=== PATIENT | female | born 1955 | race Two or more races ===

== ENCOUNTER → 2016-11-23 | Outpatient (CLI) | payer OTHER ==
--- NOTE | 2016-11-23 12:04 | REPMRS ---
Patient History The patient states she had a clinical breast exam in 11/2016. Patient is postmenopausal and had first child at age 33. Family history of breast cancer in mother at age 50 and breast cancer in paternal aunt under age 50. Took hormonal contraceptives for 12 years. Digital Woman Screen Mammo: November 23, 2016 - Exam #: [id number] Bilateral CC and MLO view(s) were taken. Technologist: Lena Dubois, Technologist Prior study comparison: November 25, 2014, bilateral digital mammo screening bilat, performed at [facility]. October 10, 2013, bilateral bilat screen digital mammo, performed at [facility] ([facility]). FINDINGS: The breast tissue is extremely dense which could obscure a lesion on mammography. There is no evidence of cancer on this mammogram. No significant changes when compared with prior studies. ASSESSMENT: BI-RADS/ACR category 2 mammogram. Benign finding(s). Given the dense breast parenchyma and family history, recommend MRI of the breasts. Recommendation Routine screening mammogram of both breasts in 1 year (for women over age 40). This mammogram was interpreted with the aid of an FDA-approved computer-aided dectection system. Electronically Signed By: Ashu Galindo MD 11/23/16 [id number]
== END ==
LOC: M WHC 08:36
PROVIDERS: ATTEND Nurse Practitioner Women's Health
DX: Z12.31 Encounter for screening mammogram for malignant neoplasm of breast (principal); Z78.0 Asymptomatic menopausal state; Z80.3 Family history of malignant neoplasm of breast

== ENCOUNTER → 2016-11-23 | Outpatient (REF) | payer OTHER | LOC: M SFHCWAGY 09:15 | PROVIDERS: ATTEND Nurse Practitioner Women's Health | DX: Z12.4 Encounter for screening for malignant neoplasm of cervix (principal); B37.3 Candidiasis of vulva and vagina ==

== ENCOUNTER 2017-02-25 10:01 | Emergency (ER) | payer OTHER ==
[~2017-02-25] VITALS: Ht 172.7 cm; Wt 79.1 kg
[2017-02-25] MEDS ORDERED: MUCI600T37 PO (11:39)
[2017-02-25] MEDS ORDERED: TESS100C PO (11:39)
[2017-02-25 12:08] VITALS: BP 141/95
--- NOTE | 2017-02-25 13:23 | REP ---
CHEST, TWO VIEWS: COMPARISON: 02/15/2010. Mild biapical pleural and parenchymal scarring is again seen, unchanged. There is no acute infiltrate. Heart is normal in size. Mediastinal silhouette is unchanged. There are mild degenerative changes of the spine. IMPRESSION: No acute pulmonary disease. Signed by Ashu Galindo MD 02/25/2017 07:16 P
== END 2017-02-25 12:10 | disposition home or self-care (01) ==
LOC: M ED 10:01
DX: J20.8 Acute bronchitis due to other specified organisms (principal); F17.210 Nicotine dependence, cigarettes, uncomplicated

== ENCOUNTER 2017-07-25 07:55 | Day surgery (SDC) | payer OTHER ==
[2017-07-25] MEDS: NS 1,000 ML IV (08:15)
[2017-07-25] MEDS ORDERED: PROPOFOL 200 MG/20 ML VIAL As Ordered ×2 (08:49→08:59)
[2017-07-25] MEDS ORDERED: LIDOCAINE 2% MDV 20 ML VIAL As Ordered (08:49)
== END 2017-07-25 09:55 | disposition home or self-care (01) ==
LOC: M OPP 07:55
DX: Z12.11 Encounter for screening for malignant neoplasm of colon (principal); D12.5 Benign neoplasm of sigmoid colon; K64.8 Other hemorrhoids; E78.5 Hyperlipidemia, unspecified; D64.9 Anemia, unspecified; Z78.0 Asymptomatic menopausal state; J44.9 Chronic obstructive pulmonary disease, unspecified; F17.210 Nicotine dependence, cigarettes, uncomplicated; Z79.82 Long term (current) use of aspirin
CPT/HCPCS: 45385

== ENCOUNTER → 2018-02-19 | Outpatient (CLI) | payer OTHER | LOC: M WHC 08:47 | DX: Z12.31 Encounter for screening mammogram for malignant neoplasm of breast (principal) | CPT/HCPCS: 77067 ==

== ENCOUNTER → 2018-08-16 | Outpatient (CLI) | payer OTHER ==
[~2018-08-16] MED LIST: ASPI1TAB PO; CALCCHW8 PO; MUCI600T37 PO; PROHANCE 279.3MG/ML 15ML VIAL (A9576) As Ordered ONE; TESS100C PO; VITA10006 PO; VITATAB11 PO
--- NOTE | 2018-08-16 17:47 | REP ---
MRI BREAST WITH AND WITHOUT CONTRAST: HISTORY: Dense breasts as well as family history of breast cancer. [facility] lifetime risk of breast cancer is 21.4%. Multiple sequences were obtained prior to and following the intravenous administration of 12 mL ProHance. Images are reviewed on the TAKO software with CAD imaging, color overlay, subtraction images and MIP reconstruction images. Breast parenchyma is dense bilaterally in a fairly symmetrical pattern. No significant cystic change is seen bilaterally. No axillary adenopathy is seen with a few nonenlarged lymph nodes seen in the axillary regions bilaterally. No suspicious enhancing mass is seen. No morphologic abnormality is seen. There is mild background parenchymal enhancement. IMPRESSION: ACR 1 negative bilateral breast MRI. No suspicious mass or morphologic abnormality. Routine yearly screening breast MRI recommended. Electronically Signed by Ashu Galindo MD 08/21/2018 09:16 A
== END ==
LOC: M RAD 09:22
PROVIDERS: ATTEND Nurse Practitioner Women's Health
DX: R92.2 Inconclusive mammogram (principal); Z80.3 Family history of malignant neoplasm of breast
CPT/HCPCS: A9576; C8908

== ENCOUNTER → 2019-02-20 | Outpatient (CLI) | payer OTHER ==
[~2019-02-20] MED LIST changes: -ASPI1TAB PO; +ASPI81TA26 PO; -PROHANCE 279.3MG/ML 15ML VIAL (A9576) As Ordered ONE
--- NOTE | 2019-02-20 11:32 | REPMRS ---
Patient History The patient states she had a clinical breast exam in 02/2019. Family history of breast cancer at age 50 in mother, breast cancer under age 50 in paternal aunt. Took hormonal contraceptives for 12 years. 3D TOMOSYNTHESIS WAS PERFORMED. Digital Woman Screen Mammo: February 20, 2019 - Exam #: [id number] Bilateral CC and MLO view(s) were taken. Technologist: Noa Herron, Technologist Prior study comparison: February 19, 2018, bilateral digital woman screen mammo performed at [facility]. November 23, 2016, digital woman screen mammo performed at [facility]. FINDINGS: The breast tissue is extremely dense which could obscure a lesion on mammography. There has been no change in the appearance of the mammogram from the prior studies. There is a moderate amount of residual fibroglandular tissue which is fairly symmetric. There is no interval development of dominant mass, areas of architectural distortion, or clustered microcalcification typical of malignancy. Assessment: BI-RADS/ACR category 1 mammogram. Negative Mammogram. Recommendation Routine screening mammogram in 1 year (for women over age 40). This mammogram was interpreted with the aid of an FDA-approved computer-aided dectection system. THE LIFETIME RISK OF BREAST CANCER IS 20.8%, THEREFORE SUPPLEMENTAL SCREENING MRI OF THE BREASTS IS RECOMMENDED IN 6 MONTHS. Electronically Signed By: Ashu Galindo MD 02/20/19 [id number]
== END ==
LOC: M WHC 09:09
PROVIDERS: ATTEND Nurse Practitioner Women's Health
DX: Z12.31 Encounter for screening mammogram for malignant neoplasm of breast (principal); Z80.3 Family history of malignant neoplasm of breast; R92.2 Inconclusive mammogram

== ENCOUNTER → 2019-08-14 | Outpatient (CLI) | payer OTHER ==
[~2019-08-14] MED LIST changes: +PROHANCE 279.3MG/ML 15ML VIAL (A9576) As Ordered ONE
--- NOTE | 2019-08-14 17:29 | REP ---
Bilateral breast MRI study without and with IV gadolinium: History: Positive family history breast carcinoma. High-risk screening study. Comparison mammography February 20, 2019. Technique: Three Jayashree MRI imaging was performed with a dedicated breast coil. Axial, coronal, and sagittal T1 and T2-weighted scans were obtained with and without fat saturation in the usual fashion. The study includes dynamically acquired post gadolinium enhanced imaging subtraction imaging. Maximal intensity projection and multiplanar re-formation imaging is included as well. The study was interpreted with the aid of Repairogen, an FDA approved computer-aided detection (CAD) software program, on a dedicated breast MRI work station. The gadolinium enhancement dose is 13 mL of intravenous ProHance. Findings: There is a marked pattern of fibroglandular tissue bilaterally and symmetrically, corresponding to the hyperdense mammographic pattern. There is a mild pattern background parenchymal enhancement on postcontrast images. There is no evidence of axillary lymphadenopathy or significant breast cystic change. No suspicious morphologic abnormality is seen on pre or postcontrast high-resolution T1 and T2-weighted scans in either breast. Dynamically acquired sequential post contrast images show no suspicious focus of enhancement and/or washout in either breast to suggest malignancy. Subtraction images are unremarkable. Impression: BIRADS category 1 negative findings. Patient's whose estimated lifetime breast cancer risk assessment is greater than 20% merit annual screening breast MRI scanning in addition to annual screening mammography. Electronically Signed by hCarli Machado MD 08/14/2019 06:02 P
== END ==
LOC: M RAD 14:45
PROVIDERS: ATTEND Nurse Practitioner Women's Health
DX: R92.2 Inconclusive mammogram (principal); Z80.3 Family history of malignant neoplasm of breast
CPT/HCPCS: A9576; C8908

== ENCOUNTER → 2020-02-23 | Outpatient (CLI) | payer OTHER ==
[~2020-02-23] MED LIST changes: -PROHANCE 279.3MG/ML 15ML VIAL (A9576) As Ordered ONE
--- NOTE | 2020-02-23 10:10 | REPMRS ---
Patient History The patient states she had a clinical breast exam in 2019. Family history of breast cancer at age 50 in mother, breast cancer under age 50 in paternal aunt. Took hormonal contraceptives for 12 years. Digital Woman Screen Mammo: February 23, 2020 - Exam #: [id number] Bilateral CC and MLO view(s) were taken. Technologist: Sandra Gerber, Technologist Prior study comparison: February 20, 2019, bilateral digital woman screen mammo performed at [facility]. February 19, 2018, bilateral digital woman screen mammo performed at [facility]. November 23, 2016, digital woman screen mammo performed at [facility]. FINDINGS: The breast tissue is heterogeneously dense. This may lower the sensitivity of mammography. The Volpara volumetric breast density category is: C. There is a moderate amount of heterogeneously dense fibroglandular tissue which is fairly symmetric. There is no interval development of dominant mass, architectural distortion, or grouped microcalcification typical of malignancy. There has been no change in the appearance of the mammogram from the prior studies. 3-D tomosynthesis shows no additional findings. Assessment: BI-RADS/ACR category 1 mammogram. Negative Mammogram. Recommendation Breast MRI of both breasts in 6 months. Routine screening mammogram of both breasts in 1 year (for women over age 40). This patient's Lifetime Breast Cancer RIsk is estimated at 20.1 %. Annual screening Breast MRI scanniing is recommended for patient's whose lifetime risk assessment is over 20%. This mammogram was interpreted with the aid of an FDA-approved computer-aided dectection system. Electronically Signed By: Sven Machado MD 02/23/20 [id number]
== END ==
LOC: M WHC 08:43
PROVIDERS: ATTEND Nurse Practitioner Women's Health
DX: Z12.31 Encounter for screening mammogram for malignant neoplasm of breast (principal); Z80.3 Family history of malignant neoplasm of breast; Z92.0 Personal history of contraception

== ENCOUNTER → 2020-02-23 | Outpatient (REF) | payer OTHER | LOC: M SFHCWAGY 13:02 | PROVIDERS: ATTEND Nurse Practitioner Women's Health | DX: Z12.4 Encounter for screening for malignant neoplasm of cervix (principal); N76.0 Acute vaginitis ==

== ENCOUNTER → 2020-09-08 | Outpatient (CLI) | payer OTHER ==
[~2020-09-08] MED LIST changes: +PROHANCE 279.3MG/ML 15ML VIAL As Ordered ONE
--- NOTE | 2020-09-08 11:51 | REP ---
INDICATION: DENSE BREAST TISSUE FAM H/O BREAST CA. COMPARISON: Mammogram 02/23/2020, MRI 08/14/2019. TECHNIQUE: Three Jayashree MRI imaging was performed with a dedicated breast coil. Axial, coronal, and sagittal T1 and T2 weighted scans were obtained with and without fat saturation in the usual fashion. The study includes dynamically acquired post gadolinium-enhanced imaging with image subtraction. Maximum intensity projection and multi planar reformation imaging is included as well. This study is interpreted with the aid of Siperian, an FDA approved computer aided detection (CAD) software program, on a dedicated breast MRI workstation. The gadolinium enhancement dose is 13 mL of intravenous ProHance. FINDINGS: There is an extreme pattern of parenchymal tissue bilaterally symmetrically. No axillary adenopathy is seen. No cystic changes seen in either breast. There is mild background parenchymal enhancement bilaterally. No suspicious enhancing mass or morphologic abnormality. IMPRESSION: BI-RADS category 1, negative bilateral breast MRI. No suspicious enhancing mass or morphologic abnormality. Yearly supplemental screening MRI of the breasts is recommended for patients with an elevated lifetime risk of breast cancer of 20% or greater, in addition to annual screening mammography, staggered every 6 months. <Electronically signed by Ashu Galindo > 09/08/20 1144
== END ==
LOC: M RAD 07:41
PROVIDERS: ATTEND Nurse Practitioner Women's Health
DX: Z80.3 Family history of malignant neoplasm of breast (principal); R92.2 Inconclusive mammogram; Z91.89 Other specified personal risk factors, not elsewhere classified
CPT/HCPCS: A9576; C8908

== ENCOUNTER 2021-01-09 13:44 | Inpatient (IN) | payer OTHER ==
[~2021-01-09] VITALS: Ht 172.7 cm; Wt 62.2 kg
[~2021-01-09 13:44] MED LIST changes: -PROHANCE 279.3MG/ML 15ML VIAL As Ordered ONE
[2021-01-09] MEDS ORDERED: ATOR1TAB19 PO (13:57)
[2021-01-09 15:05] LABS: BASO % 0.3 % (0.0-1.0); EOS # 0.1 10^3/uL (0.0-0.5); EOS % 0.5 % (0.0-3.0); HEMATOCRIT 41.9 % (36.0-47.0); HEMOGLOBIN 14.2 g/dl (12.0-15.5); LYMPH # 1.5 10^3/uL (1.5-5.0); LYMPH % 11.8 % (24.0-44.0); MEAN CORPUSCULAR HEMOGLOBIN 34.8 pg (27.0-33.0); MEAN CORPUSCULAR HGB CONC 33.9 g/dl (32.0-36.5); MEAN CORPUSCULAR VOLUME 102.7 fl (80.0-96.0); MONO # 1.3 10^3/uL (0.0-0.8); MONO % 10.1 % (2.0-8.0); NEUTROPHILS # 9.8 10^3/uL (1.5-8.5); PLATELET COUNT, AUTOMATED 255 10^3/uL (150-450); RED BLOOD COUNT 4.08 10^6/uL (4.00-5.40); WHITE BLOOD COUNT 12.8 10^3/uL (4.0-10.0)
--- NOTE | 2021-01-09 15:18 | REP ---
INDICATION: DYSPNEA/COUGH. COMPARISON: PA and lateral chest dated 01/17/2005 and PA and lateral chest dated 02/25/2017. TECHNIQUE: Portable AP chest with the patient upright. FINDINGS: The lung foster are clear. Cardiac size is normal. However, the cardiac apex has an unusual bulbous appearance as an interval change. This could be artifact from portable positioning, small infiltrate obscuring the cardiac apex or possibly a myocardial aneurysm. There are no pleural effusions. The gilson, mediastinum, and skeletal structures are unremarkable. IMPRESSION: Bulbous appearing cardiac apex, nonspecific, infiltrate obscuring the apex versus artifact from portable positioning versus myocardial aneurysm. <Electronically signed by Ashu Junior > 01/09/21 [id number]
[2021-01-09] MEDS ORDERED: ALBUTEROL SULFATE 2.5 MG/0.5 ML INH NEB SOLN INH ONE (15:20)
[2021-01-09] MEDS ORDERED: methylPREDNISolone 125MG 2ML VIAL IV ONE (15:20)
[2021-01-09] MEDS ORDERED: IPRATROPIUM 0.5MG/ALBUTEROL 2.5MG INH SOL UD 3ML (DUONEB) NEB ONE (15:20)
[2021-01-09] MEDS ORDERED: NS 1,000 ML IV ONE (15:25)
[2021-01-09] MEDS ORDERED: ACETAMINOPHEN 325 MG TAB PO ONE (15:25)
[2021-01-09 15:34] LABS: RSV AMPLIFICATION NEGATIVE (NEGATIVE)
[2021-01-09 15:34] LABS: ALBUMIN 3.4 GM/DL (3.2-5.2); ALT/SGPT 17 U/L (12-78); BILIRUBIN,DIRECT 0.2 MG/DL (0.0-0.2); BILIRUBIN,TOTAL 0.9 MG/DL (0.2-1.0); BLOOD UREA NITROGEN 9 MG/DL (7-18); CALCIUM LEVEL 8.6 MG/DL (8.8-10.2); CARBON DIOXIDE LEVEL 26 MEQ/L (21-32); CHLORIDE LEVEL 102 MEQ/L (98-107); CREATININE FOR GFR 0.49 MG/DL (0.55-1.30); GLOMERULAR FILTRATION RATE > 60.0 (>45); GLUCOSE, FASTING 140 MG/DL (70-100); SODIUM LEVEL 134 MEQ/L (136-145); TOTAL PROTEIN 7.3 GM/DL (6.4-8.2)
[2021-01-09] MEDS ORDERED: ISOVUE-370 76% 100ML VIAL As Ordered ONE (15:44)
--- NOTE | 2021-01-09 16:22 | REP ---
INDICATION: ro pe, ro pneumonia. COMPARISON: A PA and lateral chest dated 01/17/2005. TECHNIQUE: Chest CT with IV contrast, pulmonary artery CT angiography protocol. FINDINGS: There are no emboli in the pulmonary trunk or central pulmonary arteries. There are no emboli in the pulmonary artery lobar segment branches on the right or the left. There is a focal infiltrate anteriorly in the lingular segment of the left upper lobe. There is a focal infiltrate posteriorly and inferiorly in the lingular segment of the left upper lobe. There is a curvilinear density in the right middle lobe which could represent atelectasis or infiltrate. There are no pleural effusions. There are no lung masses or nodules. There are multiple bulla in the lung apices bilaterally. There is diffuse interstitial coarsening. There are bulla in the left parahilar area and in the medial basilar segment of the right lower lobe. The thoracic aorta is unremarkable. Cardiac size is normal. There is no pericardial effusion. The upper abdominal contents are unremarkable except for a punctate nonobstructive left renal upper pole calculus. IMPRESSION: There are no pulmonary emboli. There are infiltrates in the right middle lobe and lingular segment of the left upper lobe as described. No pleural effusions. Bulla and diffuse bilateral interstitial coarsening compatible with bullous emphysema and chronic lung disease. <Electronically signed by Ashu Junior > 01/09/21 [id number]
--- NOTE | 2021-01-09 17:47 | HPEPDOC ---
[facility] Medical History & Physical Date of Admission Jan 09, 2021 Date of Service: Jan 09, 2021 History and Physical CHIEF COMPLAINT: shortness of breath HISTORY OF PRESENT ILLNESS: 65-year-old female presents for 2 week history of worsening shortness of breath. She states over the last 2 days her shortness of breath significantly worsened. She also notes subjective fevers and chills at home. She has received both vaccinations for COVID several months ago. She denies chest pain, abdominal pain, nausea, vomiting, diarrhea, headaches, changes in vision, sick contacts or recent travel. PAST MEDICAL HISTORY: #COPD SOCIAL HISTORY: smoker - 1/2 ppd x 45 years denies alcohol or illicit drug use FAMILY HISTORY: Father: , cancer, unknown type. Mother: , breast cancer Brother: wegeners, lung cancer ALLERGIES: Please see below. REVIEW OF SYSTEMS: Negative except as per HPI HOME MEDICATIONS: Please see below. PHYSICAL EXAMINATION: General: NAD, lying comfortably in bed HEENT: NC/AT, EOMI Lungs: CTA B/L Heart: +S1S2, RRR Abd: soft, NT, +BS Ext: no edema Skin: no rashes MSK: full ROM in large joints Neuro: no gross focal deficits Psych: AAOx3 LABORATORY DATA: See below. MICROBIOLOGY: Please see below. A/P: 55-year-old female for 2 week history of worsening shortness of breath, fevers, chills, cough, admitted for right middle lobe pneumonia. #PNA - cef/doxy day #1 - IS, acapella - sputum Cx/gram stain - bcx pending #COPD - supplemental o2 as needed - respiratory treatments as needed #nicotine abuse - nicotine replacement therapy #DVT prophylaxis - heparin SC CODE status - extensive discussion at bedside - full code Vital Signs Vital Signs Date Time Temp Pulse Resp B/P (MAP) Pulse Ox O2 Delivery O2 Flow Rate FiO2 01/09/21 13:44 101.1 130 20 144/69 (94) 93 Room Air Laboratory Data Labs 24H Laboratory Tests 2 01/09/21 14:40: Coronavirus (COVID-19)(PCR) NEGATIVE, Influenza Type A (RT-PCR) NEGATIVE, Influenza Type B (RT-PCR) NEGATIVE, Respiratory Syncytial Virus (PCR) NEGATIVE 01/09/21 14:51: Immature Granulocyte % (Auto) 0.3, Neutrophils (%) (Auto) 77.0H, Lymphocytes (%) (Auto) 11.8L, Monocytes (%) (Auto) 10.1H, Eosinophils (%) (Auto) 0.5, Basophils (%) (Auto) 0.3, Neutrophils # (Auto) 9.8H, Lymphocytes # (Auto) 1.5, Monocytes # (Auto) 1.3H, Eosinophils # (Auto) 0.1, Basophils # (Auto) 0.0, Nucleated Red Blood Cells % (auto) 0.0, Anion Gap 6L, Glomerular Filtration Rate > 60.0, Calcium Level 8.6L, Total Bilirubin 0.9, Direct Bilirubin 0.2, Aspartate Amino Transf (AST/SGOT) 15, Alanine Aminotransferase (ALT/SGPT) 17, Alkaline Phosphatase 63, Total Protein 7.3, Albumin 3.4, Albumin/Globulin Ratio 0.9L 01/09/21 15:15: POC Troponin I (Misc) 0.01 01/09/21 15:39: POC pH (Misc Panel) 7.424, POC Base Excess (Misc Panel) 0.0, POC Saturated Percent O2 (Misc) 91L, POC pO2 (Misc Panel) 60.0L, POC pCO2 (Misc Panel) 37.2, POC HCO3 (Misc Panel) 24.4, POC Total CO2 (Misc Panel) 25.0 01/09/21 15:42: Lactic Acid Level 0.6 CBC/BMP Laboratory Tests 01/09/21 14:51 Microbiology Microbiology 01/09/21 Blood Culture, Received Pending 01/09/21 Blood Culture, Received Pending Home Medications Scheduled (Calcium 1200 7252-7380 mg-Unit) 1 Chw Chw, 1 CHW PO DAILY Ascorbic Acid (Vitamin C) 1,000 Mg Tab, 1,000 MG PO DAILY B1/B2/B3/B5/B6 (Vitamin B Complex) 1 Tab Tab, 1 TAB PO DAILY Miscellaneous Medications Atorvastatin Calcium (Atorvastatin Calcium) 10 Mg Tablet Allergies Coded Allergies: No Known Allergies (Unverified , 02/25/17) A-FIB/CHADSVASC A-FIB History Current/History of A-Fib/PAF?: No JOSE ANTONIO BRYANT MD Jan 09, 2021 17:46
[2021-01-09] MEDS ORDERED: VALT500T PO (18:27)
[2021-01-09] MEDS ORDERED: VITA100062 PO (18:27)
[2021-01-09] MEDS ORDERED: CALC600T61 PO (18:27)
[2021-01-09] MEDS ORDERED: VITATAB73 PO (18:27)
[2021-01-09] MEDS ORDERED: HOME MED LIST COMPLETE! XX SCH (18:30)
[2021-01-09] MEDS ORDERED: cefTRIAXone SOD 1 GM in D5W MINI-BAG PLUS 50 ML IV SCH (20:00)
--- NOTE | 2021-01-09 20:31 | ECGEPIP ---
[facility] - ED Test Date: 2021-01-09 Pat Name: JENNIFER KYLE Department: Room: - Gender: Female Regulatory Compliance Engineer: : [id number] Requested By: LESA Butler Order Number: [id number] Reading MD: Rose Mary Cespedes Measurements Intervals [place] Rate: 103 P: 76 ID: [id number] QRS: 92 QRSD: 72 T: 67 QT: 326 QTc: 427 Interpretive Statements Sinus tachycardia with premature supraventricular complexes Rightward axis Septal infarct , age undetermined No prior Electronically Signed on 01-09-2021 20:31:19 EDT by Rose Mary Cespedes
[2021-01-09 22:05] VITALS: BP 122/62
[2021-01-09] MEDS: BENZONATATE 100 MG CAP PO SCH (23:03)
[2021-01-09] MEDS: HEPARIN SOD (PORCINE) 5000UNITS/ML 1ML VIAL/SYRINGE SC SCH (23:03)
[2021-01-09] MEDS: DOXYCYCLINE HYCLATE 100 MG in D5W MINI-BAG PLUS 100 ML IV SCH (23:04)
[2021-01-09] MEDS: NICOTINE 14 MG/24 HR TRANSDERMAL TD SCH (23:04)
[2021-01-10 06:00] VITALS: BP 110/69
[2021-01-10 06:21] LABS: HEMATOCRIT 41.4 % (36.0-47.0); HEMOGLOBIN 13.8 g/dl (12.0-15.5); MEAN CORPUSCULAR HEMOGLOBIN 34.8 pg (27.0-33.0); MEAN CORPUSCULAR HGB CONC 33.3 g/dl (32.0-36.5); MEAN CORPUSCULAR VOLUME 104.3 fl (80.0-96.0); PLATELET COUNT, AUTOMATED 278 10^3/uL (150-450); RED BLOOD COUNT 3.97 10^6/uL (4.00-5.40); WHITE BLOOD COUNT 11.7 10^3/uL (4.0-10.0)
[2021-01-10 07:06] LABS: ALBUMIN 3.2 GM/DL (3.2-5.2); ALT/SGPT 16 U/L (12-78); BILIRUBIN,TOTAL 0.4 MG/DL (0.2-1.0); BLOOD UREA NITROGEN 8 MG/DL (7-18); CALCIUM LEVEL 8.6 MG/DL (8.8-10.2); CARBON DIOXIDE LEVEL 28 MEQ/L (21-32); CHLORIDE LEVEL 105 MEQ/L (98-107); CREATININE FOR GFR 0.49 MG/DL (0.55-1.30); GLOMERULAR FILTRATION RATE > 60.0 (>45); GLUCOSE, FASTING 198 MG/DL (70-100); SODIUM LEVEL 137 MEQ/L (136-145); TOTAL PROTEIN 7.4 GM/DL (6.4-8.2)
[2021-01-10] MEDS: DOXYCYCLINE HYCLATE 100 MG in D5W MINI-BAG PLUS 100 ML IV SCH (08:36)
[2021-01-10] MEDS: BENZONATATE 100 MG CAP PO SCH (08:36)
[2021-01-10] MEDS: HEPARIN SOD (PORCINE) 5000UNITS/ML 1ML VIAL/SYRINGE SC SCH (08:37)
[2021-01-10] MEDS: NICOTINE 14 MG/24 HR TRANSDERMAL TD SCH (08:37)
[2021-01-10] MEDS ORDERED: DOXY-350 PO (10:03)
[2021-01-10] MEDS ORDERED: PRED10TA2 PO (10:03)
[2021-01-10] MEDS ORDERED: NICO14PA TD (10:03)
[2021-01-10] MEDS ORDERED: CEFD1CAP8 PO (10:03)
[2021-01-10] MEDS ORDERED: predniSONE 20 MG TAB PO ONE (10:05)
[2021-01-12 14:09] LABS: BODY FLUID CULTURE Not indicated. (.); LEGIONELLA ANTIGEN URINE Negative (Negative); ORGANISM ID Not indicated. (.); SPECIMEN SOURCE Urine (.); URINE STREP PNEUMONIAE ANTIGEN Negative (Negative)
--- NOTE | 2021-02-01 09:37 | DS.PDOC ---
Discharge Summary General Date of Admission Jan 09, 2021 at 18:05 Date of Discharge 01/10/2021 Discharge Summary PROCEDURES PERFORMED DURING STAY: [None]. DISCHARGE DIAGNOSES: #COPD exacerbation COMPLICATIONS/CHIEF COMPLAINT: Uri (Upper Respiratory Infection). HISTORY OF PRESENT ILLNESS: 65-year-old female presents for 2 week history of worsening shortness of breath. She states over the last 2 days her shortness of breath significantly worsened. She also notes subjective fevers and chills at home. She has received both vaccinations for COVID several months ago. She denied chest pain, abdominal pain, nausea, vomiting, diarrhea, headaches, changes in vision, sick contacts or recent travel. Hospital course was unremarkable. Her breathing significantly improved with antibiotics and steroid therapy. She was anxious to return home and follow up with her PCP. DISCHARGE MEDICATIONS: Please see below. ALLERGIES: Please see below. PHYSICAL EXAMINATION ON DISCHARGE: General: NAD, lying comfortably in bed HEENT: NC/AT, EOMI Lungs: CTA B/L, good air movement Heart: +S1S2, RRR Abd: soft, NT, +BS Ext: no edema Skin: no rashes MSK: full ROM in large joints Neuro: no gross focal deficits Psych: AAOx3 LABORATORY DATA: Please see below. ACTIVITY: [As tolerated]. DISPOSITION: 01 Home, Self-Care. DISCHARGE INSTRUCTIONS: 1. Follow up with PCP in 3-5 days DISCHARGE CONDITION: [Stable]. TIME SPENT ON DISCHARGE: 35 minutes. Discharge Medications Scheduled Ascorbic Acid (Vitamin C) 1,000 Mg Tablet, 1,000 MG PO DAILY, (Reported) Atorvastatin Calcium (Atorvastatin Calcium) 10 Mg Tablet, 10 MG PO DAILY, (Reported) Calcium Carbonate (Calcium) 600 Mg Tablet, 1,200 MG PO DAILY, (Reported) Cefdinir (Cefdinir) 300 Mg Capsule, 300 MG PO DAILY Doxycycline Monohydrate (Doxycycline) 100 Mg Capsule, 100 MG PO BID Nicotine (Nicotine Patch) 14 Mg Patch.td24, 1 PATCH TD DAILY Prednisone (Prednisone) 10 Mg Tablet, 10 MG PO TAPER Take 4 tabs daily x 2 days, then 3 tabs daily x 2 days, then 2 tabs daily x 2 days, then 1 tab daily x 2 days and stop Valacyclovir HCl (Valtrex) 500 Mg Tablet, 500 MG PO DAILY, (Reported) Vitamin B Complex (Vitamin B Complex) 1 Each Tablet, 1 TAB PO DAILY, (Reported) Allergies Coded Allergies: No Known Allergies (Unverified , 02/25/17) JOSE ANTONIO BRYANT MD Feb 01, 2021 09:37
== END 2021-01-10 11:14 | disposition home or self-care (01) | DRG 140 ==
LOC: M ED 13:44 → M ED INP 18:05 → ENRESERV 20:59 → M MSPAV 22:38
PROVIDERS: ADMIT Internal Medicine; ATTEND Internal Medicine
DX: J44.1 Chronic obstructive pulmonary disease with (acute) exacerbation (principal); F17.200 Nicotine dependence, unspecified, uncomplicated; Z20.822 Contact with and (suspected) exposure to COVID-19; Z79.899 Other long term (current) drug therapy

== ENCOUNTER → 2021-03-09 | Outpatient (REF) | payer OTHER ==
[~2021-03-09] MED LIST changes: +ATOR1TAB19 PO; +CALC600T61 PO; +CEFD1CAP8 PO; +DOXY-350 PO; +NICO14PA TD; +PRED10TA2 PO; +VALT500T PO; +VITA100062 PO; +VITATAB73 PO
== END ==
LOC: M SFHCWAGY 14:03
PROVIDERS: ATTEND Nurse Practitioner Women's Health
DX: Z12.4 Encounter for screening for malignant neoplasm of cervix (principal); Z01.419 Encounter for gynecological examination (general) (routine) without abnormal findings; Z77.9 Other contact with and (suspected) exposures hazardous to health

== ENCOUNTER → 2021-03-09 | Outpatient (CLI) | payer OTHER ==
--- NOTE | 2021-03-09 09:15 | REPMRS ---
Patient History The patient states she had a clinical breast exam in March 2021. Family history of breast cancer at age 50 in mother, breast cancer under age 50 in paternal aunt. Took hormonal contraceptives for 12 years. Digital Woman Screen Mammo: March 09, 2021 - Exam #: [id number] Bilateral CC and MLO view(s) were taken. Technologist: Noa Herron, Technologist Prior study comparison: February 23, 2020, bilateral digital woman screen mammo performed at [facility]. February 20, 2019, bilateral digital woman screen mammo performed at [facility]. February 19, 2018, bilateral digital woman screen mammo performed at [facility]. FINDINGS: The breast tissue is heterogeneously dense. This may lower the sensitivity of mammography. The Volpara volumetric breast density category is: C. There is a moderate amount of heterogeneously dense fibroglandular tissue which is fairly symmetric. There is no interval development of dominant mass, architectural distortion, or grouped microcalcification typical of malignancy. There has been no change in the appearance of the mammogram from the prior studies. 3-D tomosynthesis shows no additional findings. Assessment: BI-RADS/ACR category 1 mammogram. Negative Mammogram. Recommendation Routine screening mammogram of both breasts in 1 year (for women over age 40). This patient's [facility] Lifetime Breast Cancer RIsk is estimated at 19.4 %. This mammogram was interpreted with the aid of an FDA-approved computer-aided dectection system. Electronically Signed By: Sven Machado MD 03/09/21 0915
== END ==
LOC: M WHC 07:51
PROVIDERS: ATTEND Nurse Practitioner Women's Health
DX: Z12.31 Encounter for screening mammogram for malignant neoplasm of breast (principal)

== ENCOUNTER → 2022-03-13 | Outpatient (REF) | payer OTHER ==
[~2022-03-13] MED LIST changes: -CEFD1CAP8 PO; +CEFD300C41 PO
== END ==
LOC: M SFHCWAGY 13:50
PROVIDERS: ATTEND Nurse Practitioner Family
DX: Z12.4 Encounter for screening for malignant neoplasm of cervix (principal)

== ENCOUNTER → 2022-03-13 | Outpatient (CLI) | payer OTHER | LOC: M WHC 09:13 | PROVIDERS: ATTEND Nurse Practitioner Family | DX: Z12.31 Encounter for screening mammogram for malignant neoplasm of breast (principal); Z80.3 Family history of malignant neoplasm of breast ==

== ENCOUNTER → 2022-09-07 | Outpatient (CLI) | payer OTHER ==
[~2022-09-07] MED LIST changes: -DOXY-350 PO; +DOXY-444 PO
[2022-09-07 14:42] LABS: ALKALINE PHOSPHATASE 69 U/L (46-116); ALT/SGPT 28 U/L (7.0-40); AST/SGOT 15 U/L (<34); BILIRUBIN,TOTAL 0.8 MG/DL (0.3-1.2); BLOOD UREA NITROGEN 10 MG/DL (9-23); CALCIUM LEVEL 9.1 MG/DL (8.3-10.6); CARBON DIOXIDE LEVEL 32 MMOL/L (20-31); CHLORIDE LEVEL 104 MMOL/L (98-107); CREATININE FOR GFR 0.53 MG/DL (0.55-1.30); GLOMERULAR FILTRATION RATE > 60.0 (>45); GLUCOSE, FASTING 80 MG/DL (74-106); POTASSIUM SERUM 4.9 MMOL/L (3.5-5.1); SODIUM LEVEL 139 MMOL/L (136-145); TOTAL PROTEIN 7.3 G/DL (5.7-8.2)
== END ==
LOC: M PLALAB 09:55
PROVIDERS: ATTEND Nurse Practitioner Family
DX: R92.2 Inconclusive mammogram (principal)

== ENCOUNTER → 2022-09-19 | Outpatient (CLI) | payer OTHER ==
[~2022-09-19] MED LIST changes: +PROHANCE 279.3MG/ML 15ML VIAL ONE
== END ==
LOC: M PLAIMG 10:17
PROVIDERS: ATTEND Nurse Practitioner Family
DX: R92.2 Inconclusive mammogram (principal); Z80.3 Family history of malignant neoplasm of breast
CPT/HCPCS: 77049; A9576

== ENCOUNTER → 2022-09-22 | Outpatient (REF) | payer OTHER ==
[~2022-09-22] MED LIST changes: -PROHANCE 279.3MG/ML 15ML VIAL ONE
[2022-09-22 11:03] LABS: CHOLESTEROL RISK RATIO 2.37 (<5); HDL CHOLESTEROL 61.5 MG/DL (>40); LDL CHOLESTEROL 71.9 MG/DL (<100); NON-HDL-C 84.5 MG/DL
== END ==
LOC: M LABWUC 09:50
PROVIDERS: ATTEND Physician Assistant
DX: E78.5 Hyperlipidemia, unspecified (principal)

== ENCOUNTER 2022-12-09 10:45 | Observation (INO) | payer MEDICARE, OTHER ==
[~2022-12-09] VITALS: Ht 172.7 cm; Wt 61.3 kg
[~2022-12-09 10:45] MED LIST changes: +CETI10CA2 PO
[2022-12-09 11:44] LABS: BASO % 0.6 % (0.0-1.0); EOS # 0.1 10^3/uL (0.0-0.5); EOS % 0.7 % (0.0-3.0); HEMATOCRIT 47.3 % (36.0-47.0); HEMOGLOBIN 15.9 g/dl (12.0-15.5); LYMPH # 2.6 10^3/uL (1.5-5.0); LYMPH % 38.5 % (24.0-44.0); MEAN CORPUSCULAR HEMOGLOBIN 34.9 pg (27.0-33.0); MEAN CORPUSCULAR HGB CONC 33.6 g/dl (32.0-36.5); MONO # 0.5 10^3/uL (0.0-0.8); MONO % 7.7 % (2.0-8.0); NEUTROPHILS # 3.5 10^3/uL (1.5-8.5); NEUTROPHILS % 52.2 % (36.0-66.0); PLATELET COUNT, AUTOMATED 242 10^3/uL (150-450); RED BLOOD COUNT 4.55 10^6/uL (4.00-5.40); WHITE BLOOD COUNT 6.7 10^3/uL (4.0-10.0)
[2022-12-09 11:49] LABS: VENOUS BASE EXCESS 4.7 (-2.0-2.0); VENOUS HCO3 32.2 MMOL/L (23.0-27.0); VENOUS O2 SATURATION 73.4 % (60.0-80.0); VENOUS PARTIAL PRESSURE CO2 59.2 mmHg (38.0-50.0); VENOUS PARTIAL PRESSURE O2 36.7 mmHg (30.0-50.0); VENOUS PH 7.354 UNITS (7.330-7.430); VENOUS TOTAL CO2 34.1 MMOL/L (24.0-28.0)
[2022-12-09 12:04] LABS: ALKALINE PHOSPHATASE 66 U/L (46-116); ALT/SGPT < 9 U/L (7.0-40); AST/SGOT 18 U/L (<34); BILIRUBIN,DIRECT 0.2 MG/DL (<0.4); BILIRUBIN,TOTAL 0.7 MG/DL (0.3-1.2); BLOOD UREA NITROGEN 9 MG/DL (9-23); CALCIUM LEVEL 9.8 MG/DL (8.3-10.6); CARBON DIOXIDE LEVEL 33 MMOL/L (20-31); CHLORIDE LEVEL 103 MMOL/L (98-107); CPK CREATINE PHOSPHOKINASE 60 U/L (34-145); CREATININE FOR GFR 0.45 MG/DL (0.55-1.30); GLOMERULAR FILTRATION RATE > 60.0 (>45); GLUCOSE, FASTING 149 MG/DL (74-106); SODIUM LEVEL 140 MMOL/L (136-145); TOTAL PROTEIN 7.8 G/DL (5.7-8.2)
[2022-12-09 12:05] LABS: CK-MB VALUE MASS 1.1 NG/ML (<3.6); MB/CK RELATIVE INDEX 1.83 (< OR =4)
[2022-12-09 12:08] LABS: THYROID STIMULATING HORMONE 0.628 uIU/ML (0.55-4.78); THYROXINE (T4) 6.5 UG/DL (4.5-10.9)
[2022-12-09] MEDS ORDERED: methylPREDNISolone 125MG 2ML VIAL IV ONE (12:30)
[2022-12-09] MEDS ORDERED: ISOVUE-370 76% 100ML VIAL As Ordered ONE (12:34)
[2022-12-09] MEDS: IPRATROPIUM 0.5MG/ALBUTEROL 2.5MG INH SOL UD 3ML (DUONEB) NEB PRN (12:39)
[2022-12-09 13:02] LABS: CK-MB VALUE MASS < 1.0 NG/ML (<3.6)
[2022-12-09 13:14] LABS: CPK CREATINE PHOSPHOKINASE 49 U/L (34-145); MB/CK RELATIVE INDEX 2.04 (< OR =4)
[2022-12-09 13:51] VITALS: O2SAT 79
[2022-12-09] MEDS ORDERED: MED REC IN PROGRESS XX SCH (14:25)
[2022-12-09] MEDS ORDERED: HOME MED LIST COMPLETE! XX SCH (14:40)
[2022-12-09 14:43] LABS: PROCALCITONIN <0.04 ng/ml
[2022-12-09] MEDS ORDERED: IPRATROPIUM 0.5MG/ALBUTEROL 2.5MG INH SOL UD 3ML (DUONEB) NEB PRN (14:45)
[2022-12-09] MEDS: MAG SULF 1GM/100ML (MAG RUN) 1 GM in IV 1 EA IV SCH ×2 (15:19→17:06)
[2022-12-09 16:11] VITALS: BP 129/65; TEMP 97.7; O2SAT 91
[2022-12-09] MEDS: AZITHROMYCIN 250MG TABLET PO SCH (17:04)
[2022-12-09 21:19] VITALS: BP 131/65; TEMP 97.9; O2SAT 90
[2022-12-09] MEDS: ADVAIR HFA 115/21MCG INHALER INH SCH (21:52)
[2022-12-09] MEDS: IPRATROPIUM 0.5MG/ALBUTEROL 2.5MG INH SOL UD 3ML (DUONEB) NEB SCH (21:52)
[2022-12-10] MEDS ORDERED: methylPREDNISolone 40MG 1ML VIAL IV SCH
[2022-12-10] MEDS: IPRATROPIUM 0.5MG/ALBUTEROL 2.5MG INH SOL UD 3ML (DUONEB) NEB SCH ×4 (01:00→21:10)
[2022-12-10 06:00] VITALS: BP 137/78; TEMP 97.9; O2SAT 90
[2022-12-10 06:51] LABS: HEMATOCRIT 42.4 % (36.0-47.0); HEMOGLOBIN 14.3 g/dl (12.0-15.5); MEAN CORPUSCULAR HGB CONC 33.7 g/dl (32.0-36.5); MEAN CORPUSCULAR VOLUME 103.7 fl (80.0-96.0); PLATELET COUNT, AUTOMATED 238 10^3/uL (150-450); RED BLOOD COUNT 4.09 10^6/uL (4.00-5.40); WHITE BLOOD COUNT 7.4 10^3/uL (4.0-10.0)
[2022-12-10 06:54] LABS: BLOOD UREA NITROGEN 6 MG/DL (9-23); CALCIUM LEVEL 8.3 MG/DL (8.3-10.6); CARBON DIOXIDE LEVEL 30 MMOL/L (20-31); CHLORIDE LEVEL 105 MMOL/L (98-107); CREATININE FOR GFR 0.37 MG/DL (0.55-1.30); GLOMERULAR FILTRATION RATE > 60.0 (>45); GLUCOSE, FASTING 167 MG/DL (74-106); POTASSIUM SERUM 4.5 MMOL/L (3.5-5.1); SODIUM LEVEL 139 MMOL/L (136-145)
[2022-12-10] MEDS: ADVAIR HFA 115/21MCG INHALER INH SCH ×2 (07:24→21:10)
[2022-12-10] MEDS: ATORVASTATIN 10 MG TAB PO SCH (08:25)
[2022-12-10] MEDS: ENOXAPARIN 40MG/0.4ML SYRINGE (J1650 PER 10MG) SC SCH (08:25)
[2022-12-10] MEDS: AZITHROMYCIN 250MG TABLET PO SCH (08:25)
[2022-12-10] MEDS: valACYclovir HCL 500 MG TAB PO SCH (08:25)
[2022-12-10] MEDS: methylPREDNISolone 40MG 1ML VIAL IV SCH ×2 (12:44→20:16)
[2022-12-10 14:09] VITALS: BP 118/58; TEMP 98.1; O2SAT 93
[2022-12-10] MEDS ORDERED: PREVNAR-20 VACCINE 0.5ML SYRINGE IM.IMMUN ONE (15:00)
[2022-12-10 21:20] VITALS: BP 121/61; TEMP 97.9; O2SAT 94
[2022-12-11] MEDS: IPRATROPIUM 0.5MG/ALBUTEROL 2.5MG INH SOL UD 3ML (DUONEB) NEB SCH ×2 (00:46→07:27)
[2022-12-11] MEDS: methylPREDNISolone 40MG 1ML VIAL IV SCH (04:09)
[2022-12-11 05:57] VITALS: BP 128/78; TEMP 97.7; O2SAT 92
[2022-12-11] MEDS: ADVAIR HFA 115/21MCG INHALER INH SCH (07:27)
[2022-12-11] MEDS: ENOXAPARIN 40MG/0.4ML SYRINGE (J1650 PER 10MG) SC SCH (09:00)
[2022-12-11] MEDS: ATORVASTATIN 10 MG TAB PO SCH (09:10)
[2022-12-11] MEDS: AZITHROMYCIN 250MG TABLET PO SCH (09:10)
[2022-12-11] MEDS: valACYclovir HCL 500 MG TAB PO SCH (09:10)
[2022-12-11] MEDS ORDERED: STIO1AER IN (09:27)
[2022-12-11] MEDS ORDERED: PRED10TA2 PO (09:27)
[2022-12-11] MEDS ORDERED: ALBU8.5H INH (09:27)
[2022-12-11] MEDS ORDERED: PRED20TA PO (09:27)
[2022-12-11] MEDS ORDERED: AZIT500T5 PO (09:27)
== END 2022-12-11 11:00 | disposition home health service (06) ==
LOC: M ED 10:45 → M ED INP 14:11 → ENRESERV 14:42 → M MS5PR 16:15
PROVIDERS: ADMIT Internal Medicine; ATTEND Internal Medicine
DX: J44.1 Chronic obstructive pulmonary disease with (acute) exacerbation (principal); J96.01 Acute respiratory failure with hypoxia; B34.1 Enterovirus infection, unspecified; B34.8 Other viral infections of unspecified site; E78.5 Hyperlipidemia, unspecified; Z79.899 Other long term (current) drug therapy; F17.210 Nicotine dependence, cigarettes, uncomplicated
CPT/HCPCS: 36415; 71045; 71275; 80047; 80048; 80076; 82550; 82553; 82803; 83605; 83880; 84145; 84436; 84443; 84484; 85025; 85027; 87040; 87486; 87581; 87633; 87641; 87798; 90677; 93005; 93041; 94640; 94760; 96365; 96372; 96375; 96376; 99285; G0009; G0378; J1650; J2920; J2930; J3475; Q9967

== ENCOUNTER → 2023-03-26 | Outpatient (CLI) | payer MEDICARE, OTHER ==
[~2023-03-26] MED LIST changes: +ALBU8.5H INH; +AZIT500T5 PO; -CEFD300C41 PO; +CEFD300C42 PO; +FLUT1BLS8; +PRED20TA PO; +STIO1AER IN
[2023-03-27 04:19] LABS: CHOLESTEROL RISK RATIO 2.48 (<5); HDL CHOLESTEROL 60.3 MG/DL (>40); LDL CHOLESTEROL 69.5 MG/DL (<100); NON-HDL-C 89.7 MG/DL
== END ==
LOC: M WUC 08:27
PROVIDERS: ATTEND Physician Assistant
DX: E78.5 Hyperlipidemia, unspecified (principal)

== ENCOUNTER 2023-04-06 06:57 | Day surgery (SDC) | payer MEDICARE, OTHER ==
[~2023-04-06] VITALS: Ht 172.7 cm; Wt 60.9 kg
[~2023-04-06 06:57] MED LIST changes: +NS 1,000 ML IV ONE
[2023-04-06] MEDS ORDERED: propofoL 200 MG/20 ML VIAL As Ordered ONE ×2 (07:08→08:09)
[2023-04-06 07:56] VITALS: TEMP 97.6
[2023-04-06 08:16] VITALS: BP 129/62; O2SAT 98
== END 2023-04-06 08:19 | disposition home or self-care (01) ==
LOC: M OPP 06:57
PROVIDERS: ATTEND Surgery
DX: Z86.010 Personal history of colon polyps (principal); K64.1 Second degree hemorrhoids; K57.30 Diverticulosis of large intestine without perforation or abscess without bleeding; F17.200 Nicotine dependence, unspecified, uncomplicated; Z79.02 Long term (current) use of antithrombotics/antiplatelets; Z79.51 Long term (current) use of inhaled steroids

== ENCOUNTER → 2023-05-31 | Outpatient (CLI) | payer MEDICARE, OTHER ==
[~2023-05-31] MED LIST changes: +CEFD1CAP9 PO; -CEFD300C42 PO; -NS 1,000 ML IV ONE
== END ==
LOC: M WHC 07:58
PROVIDERS: ATTEND Nurse Practitioner Family
DX: Z12.31 Encounter for screening mammogram for malignant neoplasm of breast (principal)

== ENCOUNTER → 2023-05-31 | Outpatient (REF) | payer OTHER | LOC: M SFHCWAGY 13:09 | PROVIDERS: ATTEND Nurse Practitioner Family | DX: Z12.4 Encounter for screening for malignant neoplasm of cervix (principal) ==

== ENCOUNTER → 2023-09-21 | Outpatient (CLI) | payer MEDICARE, OTHER ==
[~2023-09-21] MED LIST changes: +DOXY-440 PO; -DOXY-444 PO
[2023-09-21 12:39] LABS: ALBUMIN 3.5 G/DL (3.2-5.2); ALKALINE PHOSPHATASE 52 U/L (46-116); ALT/SGPT 21 U/L (7.0-40); AST/SGOT 13 U/L (<34); BILIRUBIN,TOTAL 0.7 MG/DL (0.3-1.2); BLOOD UREA NITROGEN 14 MG/DL (9-23); CARBON DIOXIDE LEVEL 27 MMOL/L (20-31); CHLORIDE LEVEL 107 MMOL/L (98-107); CHOLESTEROL LEVEL 151 MG/DL (<200); CREATININE FOR GFR 0.54 MG/DL (0.55-1.30); GLOMERULAR FILTRATION RATE > 60.0 (>45); GLUCOSE, FASTING 96 MG/DL (74-106); HDL CHOLESTEROL 53.9 MG/DL (>40); LDL CHOLESTEROL 82.1 MG/DL (<100); NON-HDL-C 97.1 MG/DL; POTASSIUM SERUM 4.5 MMOL/L (3.5-5.1); SODIUM LEVEL 136 MMOL/L (136-145); TOTAL PROTEIN 6.6 G/DL (5.7-8.2); TRIGLYCERIDES LEVEL 75 MG/DL (<150)
[2023-09-21 12:48] LABS: HEMATOCRIT 38.2 % (36.0-47.0); HEMOGLOBIN 12.6 g/dl (12.0-15.5); MEAN CORPUSCULAR HEMOGLOBIN 34.1 pg (27.0-33.0); MEAN CORPUSCULAR VOLUME 103.2 fl (80.0-96.0); PLATELET COUNT, AUTOMATED 203 10^3/uL (150-450)
[2023-09-25 12:12] LABS: WHITE BLOOD COUNT 5.3 10^3/uL (4.0-10.0)
== END ==
LOC: M WUC 08:40
PROVIDERS: ATTEND Physician Assistant
DX: M25.511 Pain in right shoulder (principal); M85.821 Other specified disorders of bone density and structure, right upper arm; E78.5 Hyperlipidemia, unspecified; J44.9 Chronic obstructive pulmonary disease, unspecified

== ENCOUNTER → 2024-02-01 | Outpatient (CLI) | payer MEDICARE | LOC: M RAD 07:16 | PROVIDERS: ATTEND Internal Medicine Pulmonary Disease | DX: Z12.2 Encounter for screening for malignant neoplasm of respiratory organs (principal); Z87.891 Personal history of nicotine dependence ==

== ENCOUNTER → 2024-04-02 | Outpatient (CLI) | payer MEDICARE | LOC: M RAD 09:21 | PROVIDERS: ATTEND Internal Medicine Pulmonary Disease | DX: R91.8 Other nonspecific abnormal finding of lung field (principal) ==

== ENCOUNTER → 2024-04-04 | Outpatient (CLI) | payer MEDICARE ==
[2024-04-04 11:18] LABS: HEMATOCRIT 39.2 % (36.0-47.0); HEMOGLOBIN 12.7 g/dl (12.0-15.5); MEAN CORPUSCULAR HEMOGLOBIN 32.6 pg (27.0-33.0); MEAN CORPUSCULAR HGB CONC 32.4 g/dl (32.0-36.5); MEAN CORPUSCULAR VOLUME 100.8 fl (80.0-96.0); PLATELET COUNT, AUTOMATED 291 10^3/uL (150-450); RED BLOOD COUNT 3.89 10^6/uL (4.00-5.40)
[2024-04-04 11:41] LABS: ALBUMIN 3.4 G/DL (3.2-5.2); ALKALINE PHOSPHATASE 57 U/L (35-104); ALT/SGPT 20 U/L (7.0-40); AST/SGOT 11 U/L (<34); BILIRUBIN,TOTAL 0.6 MG/DL (0.3-1.2); BLOOD UREA NITROGEN 11 MG/DL (9-23); CALCIUM LEVEL 9.4 MG/DL (8.3-10.6); CARBON DIOXIDE LEVEL 28 MMOL/L (20-31); CHLORIDE LEVEL 106 MMOL/L (98-107); CHOLESTEROL LEVEL 136 MG/DL (<200); CHOLESTEROL RISK RATIO 2.95 (<5); CREATININE FOR GFR 0.44 MG/DL (0.55-1.30); GLOMERULAR FILTRATION RATE > 60.0 (>45); GLUCOSE, FASTING 97 MG/DL (74-106); LDL CHOLESTEROL 75.8 MG/DL (<100); POTASSIUM SERUM 4.4 MMOL/L (3.5-5.1); SODIUM LEVEL 138 MMOL/L (136-145); TOTAL PROTEIN 6.9 G/DL (5.7-8.2); TRIGLYCERIDES LEVEL 71 MG/DL (<150)
[2024-04-04 11:44] LABS: THYROID STIMULATING HORMONE 0.008 uIU/ML (0.55-4.78)
[2024-04-07 10:36] LABS: WHITE BLOOD COUNT 6.1 10^3/uL (4.0-10.0)
== END ==
LOC: M WUC 08:55
PROVIDERS: ATTEND Physician Assistant
DX: E78.5 Hyperlipidemia, unspecified (principal); J44.9 Chronic obstructive pulmonary disease, unspecified

== ENCOUNTER → 2024-07-18 | Outpatient (CLI) | payer MEDICARE, MEDICAID | LOC: M RAD 09:40 | PROVIDERS: ATTEND Internal Medicine Critical Care Medicine | DX: M54.15 Radiculopathy, thoracolumbar region (principal); M47.812 Spondylosis without myelopathy or radiculopathy, cervical region; M47.814 Spondylosis without myelopathy or radiculopathy, thoracic region ==

== ENCOUNTER → 2024-07-30 | Outpatient (CLI) | payer MEDICARE | LOC: M WHC 08:18 | PROVIDERS: ATTEND Nurse Practitioner Family | DX: Z12.31 Encounter for screening mammogram for malignant neoplasm of breast (principal); R92.343 Mammographic extreme density, bilateral breasts ==

== ENCOUNTER → 2024-07-30 | Outpatient (CLI) | payer MEDICARE | LOC: M WHC 08:19 | PROVIDERS: ATTEND Physician Assistant | DX: M54.6 Pain in thoracic spine (principal); M85.88 Other specified disorders of bone density and structure, other site ==

== ENCOUNTER → 2024-07-30 | Outpatient (REF) | payer MEDICARE ==
[2024-08-01 15:12] LABS: HPV APTIMA Not Detected (Not Detected)
== END ==
LOC: M SFHCWAGY 13:05
PROVIDERS: ATTEND Nurse Practitioner Family
DX: Z12.4 Encounter for screening for malignant neoplasm of cervix (principal)
CPT/HCPCS: 87624; G0123

== ENCOUNTER → 2024-10-01 | Outpatient (CLI) | payer MEDICARE ==
[2024-10-01 14:29] LABS: HEMATOCRIT 43.6 % (36.0-47.0); HEMOGLOBIN 13.8 g/dl (12.0-15.5); MEAN CORPUSCULAR HEMOGLOBIN 30.5 pg (27.0-33.0); MEAN CORPUSCULAR HGB CONC 31.7 g/dl (32.0-36.5); MEAN CORPUSCULAR VOLUME 96.2 fl (80.0-96.0); PLATELET COUNT, AUTOMATED 233 10^3/uL (150-450); RED BLOOD COUNT 4.53 10^6/uL (4.00-5.40)
[2024-10-01 14:30] LABS: ALBUMIN 3.8 G/DL (3.2-5.2); ALKALINE PHOSPHATASE 96 U/L (35-104); ALT/SGPT 32 U/L (7.0-40); AST/SGOT 17 U/L (<34); BILIRUBIN,TOTAL 1.4 MG/DL (0.3-1.2); BLOOD UREA NITROGEN 12 MG/DL (9-23); CARBON DIOXIDE LEVEL 29 MMOL/L (20-31); CHLORIDE LEVEL 105 MMOL/L (98-107); CHOLESTEROL LEVEL 148 MG/DL (<200); GLOMERULAR FILTRATION RATE > 90.0 (>45); GLUCOSE, FASTING 101 MG/DL (74-106); LDL CHOLESTEROL 76.6 MG/DL (<100); POTASSIUM SERUM 4.8 MMOL/L (3.5-5.1); SODIUM LEVEL 141 MMOL/L (136-145); TOTAL PROTEIN 6.9 G/DL (5.7-8.2); TRIGLYCERIDES LEVEL 62 MG/DL (<150)
[2024-10-01 14:34] LABS: THYROID STIMULATING HORMONE < 0.010 uIU/ML (0.55-4.78)
[2024-10-02 06:44] LABS: WHITE BLOOD COUNT 6.6 10^3/uL (4.0-10.0)
== END ==
LOC: M WUC 08:30
PROVIDERS: ATTEND Physician Assistant
DX: E78.5 Hyperlipidemia, unspecified (principal); E55.9 Vitamin D deficiency, unspecified; J44.9 Chronic obstructive pulmonary disease, unspecified

== ENCOUNTER → 2024-10-02 | Outpatient (CLI) | payer MEDICARE | LOC: M PLAIMG 08:05 | PROVIDERS: ATTEND Internal Medicine Critical Care Medicine | DX: R91.8 Other nonspecific abnormal finding of lung field (principal); J43.9 Emphysema, unspecified; J47.9 Bronchiectasis, uncomplicated; J94.8 Other specified pleural conditions; I51.7 Cardiomegaly; I25.10 Atherosclerotic heart disease of native coronary artery without angina pectoris; I25.84 Coronary atherosclerosis due to calcified coronary lesion ==

== ENCOUNTER → 2024-10-13 | Outpatient (CLI) | payer MEDICARE ==
[2024-10-13 12:36] LABS: BASO % 0.6 % (0.0-1.0); EOS # 0.1 10^3/uL (0.0-0.5); EOS % 1.6 % (0.0-3.0); HEMATOCRIT 42.6 % (36.0-47.0); HEMOGLOBIN 13.9 g/dl (12.0-15.5); LYMPH # 2.1 10^3/uL (1.5-5.0); LYMPH % 33.3 % (24.0-44.0); MEAN CORPUSCULAR HEMOGLOBIN 30.7 pg (27.0-33.0); MEAN CORPUSCULAR HGB CONC 32.6 g/dl (32.0-36.5); MONO # 0.6 10^3/uL (0.0-0.8); MONO % 8.9 % (2.0-8.0); NEUTROPHILS # 3.5 10^3/uL (1.5-8.5); NEUTROPHILS % 55.4 % (36.0-66.0); PLATELET COUNT, AUTOMATED 212 10^3/uL (150-450); RED BLOOD COUNT 4.53 10^6/uL (4.00-5.40); WHITE BLOOD COUNT 6.4 10^3/uL (4.0-10.0)
[2024-10-13 13:14] LABS: ALBUMIN 3.8 G/DL (3.2-5.2); ALKALINE PHOSPHATASE 104 U/L (35-104); ALT/SGPT 40 U/L (7.0-40); AST/SGOT 28 U/L (<34); BILIRUBIN,TOTAL 1.3 MG/DL (0.3-1.2); BLOOD UREA NITROGEN 16 MG/DL (9-23); CALCIUM LEVEL 9.7 MG/DL (8.3-10.6); CARBON DIOXIDE LEVEL 30 MMOL/L (20-31); CHLORIDE LEVEL 102 MMOL/L (98-107); CREATININE FOR GFR 0.55 MG/DL (0.55-1.30); GLOMERULAR FILTRATION RATE > 90.0 (>45); GLUCOSE, FASTING 97 MG/DL (74-106); SODIUM LEVEL 140 MMOL/L (136-145); TOTAL PROTEIN 7.1 G/DL (5.7-8.2)
[2024-10-13 13:15] LABS: FREE T4 1.21 NG/DL (0.89-1.76)
[2024-10-13 13:16] LABS: THYROID STIMULATING HORMONE < 0.010 uIU/ML (0.55-4.78)
[2024-10-13 13:21] LABS: TOTAL T3 108.4 NG/DL (60.0-181.0)
== END ==
LOC: M WUC 09:06
PROVIDERS: ATTEND Nurse Practitioner Family
DX: E05.00 Thyrotoxicosis with diffuse goiter without thyrotoxic crisis or storm (principal)

== ENCOUNTER → 2025-02-03 | Outpatient (CLI) | payer MEDICARE ==
[2025-02-03 15:31] LABS: FREE T4 1.1 NG/DL (0.89-1.76); TOTAL T3 89.3 NG/DL (60.0-181.0)
== END ==
LOC: M WUC 11:04
PROVIDERS: ATTEND Nurse Practitioner Family
DX: E05.00 Thyrotoxicosis with diffuse goiter without thyrotoxic crisis or storm (principal)

== ENCOUNTER → 2025-04-01 | Outpatient (CLI) | payer MEDICARE ==
[2025-04-01 12:23] LABS: APPEARANCE, URINE CLEAR (CLEAR); BACTERIA, URINE AUTO NEGATIVE (NEGATIVE); BILIRUBIN, URINE AUTO NEGATIVE (NEGATIVE); BLOOD, URINE BLOOD NEGATIVE (NEGATIVE); GLUCOSE, URINE (UA) AUTO NEGATIVE (NEGATIVE); KETONE, URINE AUTO NEGATIVE (NEGATIVE); LEUKOCYTE ESTERASE, URINE AUTO NEGATIVE (NEGATIVE); NITRITE, URINE AUTO NEGATIVE (NEGATIVE); PROTEIN, URINE AUTO NEGATIVE (NEGATIVE); RBC, URINE AUTO 0 /HPF (0-3); SPECIFIC GRAVITY URINE AUTO 1.011 (1.002-1.035); SQUAMOUS EPITHELIAL CELL UR AU 1 /HPF (0-6); UROBILINOGEN, URINE AUTO 0.2 mg/dL (0.0-2.0); WBC, URINE AUTO 1 /HPF (0-3)
[2025-04-01 12:30] LABS: PLATELET COUNT, AUTOMATED 222 10^3/uL (150-450)
[2025-04-01 12:38] LABS: ALT/SGPT 22 U/L (7.0-40); AST/SGOT 21 U/L (<34); CALCIUM LEVEL 9.0 MG/DL (8.3-10.6); CARBON DIOXIDE LEVEL 29 MMOL/L (20-31); CHLORIDE LEVEL 104 MMOL/L (98-107); CHOLESTEROL LEVEL 161 MG/DL (<200); CHOLESTEROL RISK RATIO 2.35 (<5); CREATININE FOR GFR 0.71 MG/DL (0.55-1.30); GLOMERULAR FILTRATION RATE > 90.0 (>45); LDL CHOLESTEROL 78.5 MG/DL (<100); NON-HDL-C 92.7 MG/DL; POTASSIUM SERUM 4.8 MMOL/L (3.5-5.1); SODIUM LEVEL 143 MMOL/L (136-145); TRIGLYCERIDES LEVEL 71 MG/DL (<150)
== END ==
LOC: M WUC 08:49
PROVIDERS: ATTEND Physician Assistant
DX: E78.2 Mixed hyperlipidemia (principal); R35.1 Nocturia; E05.00 Thyrotoxicosis with diffuse goiter without thyrotoxic crisis or storm